=== PATIENT | male | born 1995 | race Hispanic/Latino ===

== ENCOUNTER 2017-03-21 17:04 | Emergency (ER) | payer BC ==
[2017-03-21 17:08] VITALS: BP 125/76; PULSE 109; RESP 16; TEMP 98.1; O2SAT 99; BMI 23.6
[2017-03-21] MEDS ORDERED: Morphine 2 mg/ml ISec IM STA (17:09)
--- NOTE | 2017-03-21 17:14 | ED PDOC ---
Arrival/HPI - General Historian: Patient - General Chief Complaint: Lower Extremity Problem/Injury Time Seen by Provider: 03/21/17 17:08 - History of Present Illness Narrative History of Present Illness (Text): 03/21/17 17:20 22 y/o male, no pmh, nkda, c/o rt. ankle pain and swelling x 2 hours. Pt. was playing basketball, jump and landed with the rt. ankle inversion, been having pain and unable to bear weight, only took motrin at home with limited relief, no numbness or tingling, no other medical or psychological complaints. (Piyush Wade) Past Medical History - Provider Review Nursing Documentation Reviewed: Yes - Psychiatric Hx Substance Use: No Family/Social History - Physician Review Nursing Documentation Reviewed: Yes Family/Social History: Unknown Family HX Smoking Status: Never Smoked Hx Alcohol Use: No Hx Substance Use: No Allergies/Home Meds Allergies/Adverse Reactions: Allergies No Known Allergies Allergy (Verified 03/21/17 17:07) Review of Systems - Review of Systems Constitutional: absent: Fatigue, Fevers Eyes: absent: Vision Changes ENT: absent: Hearing Changes Respiratory: absent: SOB, Cough, Sputum Cardiovascular: absent: Chest Pain Gastrointestinal: absent: Abdominal Pain, Nausea, Vomiting Musculoskeletal: Arthralgias, Joint Swelling. absent: Back Pain, Neck Pain, Myalgias Skin: absent: Rash, Pruritis, Skin Lesions, Laceration, Abscess, Ulcer, Cellulitis Neurological: absent: Headache, Dizziness, Focal Weakness, Gait Changes Psychiatric: absent: Anxiety, Depression, Suicidal Ideation Physical Exam Vital Signs Reviewed: Yes Temperature: Afebrile Blood Pressure: Normal Pulse: Tachycardic Respiratory Rate: Normal Appearance: Positive for: Well-Appearing, Non-Toxic, Comfortable Pain Distress: Moderate Mental Status: Positive for: Alert and Oriented X 3 - Systems Exam Head: Present: Atraumatic, Normocephalic Pupils: Present: PERRL Extroacular Muscles: Present: EOMI Conjunctiva: Present: Normal Ears: Present: NORMAL TM, Normal Canal. No: Erythema Mouth: Present: Moist Mucous Membranes Neck: Present: Normal Range of Motion Respiratory/Chest: Present: Clear to Auscultation, Good Air Exchange. No: Respiratory Distress, Accessory Muscle Use Cardiovascular: Present: Regular Rate and Rhythm, Normal S1, S2. No: Murmurs Abdomen: Present: Normal Bowel Sounds. No: Tenderness, Distention, Peritoneal Signs Back: Present: Normal Inspection Upper Extremity: Present: Normal Inspection. No: Cyanosis, Edema Lower Extremity: Present: Normal Inspection, NORMAL PULSES, Neurovascularly Intact, Capillary Refill < 2 s, Other (Rt. ankle/foot: +ttp on the lateral malleolus and medially as well with mild swelling, negative gabriel, FROM without limitation, sensation intact, motor 5/5, +DPPT pulses, capillary refill< 2 seconds. ). No: Edema, Temperature Abnormalties Neurological: Present: GCS=15, Speech Normal, Motor Func Grossly Intact, Gait Normal, Memory Normal Skin: Present: Warm, Dry, Normal Color. No: Rashes Psychiatric: Present: Alert, Oriented x 3, Normal Insight, Normal Concentration Vital Signs Temp Pulse Resp BP Pulse Ox 03/21/17 17:08 98.1 F 109 H 16 125/76 99 Medical Decision Making - RAD Interpretation Staff Developer: Radiologist ED Course and Treatment: I was available for consultation during PA evaluation. The chart was reviewed by me, and I agree with disposition. The documented history was done by the physician plate maker zinc. The documented physical exam was done by the physician plate maker zinc. The documented procedures were done by the physician plate maker zinc. ( Daniel Pablo) 03/21/17 17:10 -Rt. ankle -Morphine 2mg IM -Observe and reassess 03/21/17 17:44 -xray show significant bilateral malleolus swelling with palpable achilles tendon, posterior splint applied for support, advised outpatient MRI for ligament injury -Discharge home with posterior splint, sling, motrin, ice compression, non- weight bearing, follow up with your own pmd within 2 days, return to the ER for any new or worsening signs or symptoms. (Piyush Wade) - RAD Interpretation Radiology Orders: 03/21/17 17:09 ANKLE RIGHT 3 VIEWS ROUTINE [RAD] Stat no acute fracture, soft tissue swelling. (Piyush Wade) - Medication Orders Current Medication Orders: Discontinued Medications Morphine Sulfate (Morphine) 2 mg IM STAT STA Stop: 03/21/17 17:10 Last Admin: 03/21/17 17:10 Dose: 2 mg Re-Assess: [facility] Pain Assessment Document 03/21/17 18:10 OCS (Rec: 03/21/17 18:28 OCS [id number]) Pain Reassessment Is this a pain reassessment? Yes Sleep Is patient sleeping during reassessment? No Presence of Pain Presence of Pain Yes Pain Scale Used Pain Scale Used Numeric Location Left, Right or Bilateral Right Pain Location Body Site Leg Ankle Foot - PA / PSYCHOLOGY TECHNICIAN / Resident Statement MD/DO has reviewed & agrees with the documentation as recorded. Disposition/Present on Arrival - Present on Arrival Any Indicators Present on Arrival: No History of DVT/PE: No History of Uncontrolled Diabetes: No Urinary Catheter: No History of Decub. Ulcer: No History Surgical Site Infection Following: None - Disposition Have Diagnosis and Disposition been Completed?: Yes Disposition Time: 17:45 Patient Plan: Discharge - Disposition Diagnosis: Ankle injury, Ankle swelling Disposition: HOME/ ROUTINE Condition: IMPROVED Additional Instructions: Discharge home with posterior splint, sling, motrin, ice compression, non- weight bearing, follow up with your own pmd within 2 days, return to the ER for any new or worsening signs or symptoms. Prescriptions: Ibuprofen [Motrin] 600 mg PO QID PRN #24 tab PRN Reason: Other Referrals: Blanka Navarro MD [Staff Provider] - Follow up with primary [facility] [place] [Outside] - Follow up with primary Forms: WORK NOTE
--- NOTE | 2017-03-22 08:40 | RAD ---
PROCEDURE: Right Ankle Radiographs. HISTORY: Rt. ankle inversion injury COMPARISON: None FINDINGS: BONES: Normal. No fracture. JOINTS: Normal. No osteoarthritis. Ankle mortise maintained. Talar dome intact SOFT TISSUES: Lateral soft tissue swelling, nonspecific OTHER FINDINGS: None. IMPRESSION: No acute fracture. Lateral soft tissue swelling.
== END 2017-03-21 18:45 | disposition home or self-care (01) ==
LOC: ED 17:04
DX: S99.911A Unspecified injury of right ankle, initial encounter (principal); X58.XXXA Exposure to other specified factors, initial encounter; Y93.39 Activity, other involving climbing, rappelling and jumping off; M25.471 Effusion, right ankle
CPT/HCPCS: 73610; 96372; 99282; J2270